=== PATIENT | male | born 1980 | race Two or more races ===

== ENCOUNTER 2020-04-30 06:18 | Day surgery (SDC) | payer OTHER ==
[2020-04-30] MEDS ORDERED: NEXIUM 24HR20 MG PO (09:49)
== END 2020-04-30 11:33 | disposition home or self-care (01) ==
LOC: AMB-ENDOS 06:18
PROVIDERS: ATTEND Surgery
DX: D13.1 Benign neoplasm of stomach (principal); K44.9 Diaphragmatic hernia without obstruction or gangrene; Z20.828 Contact with and (suspected) exposure to other viral communicable diseases